=== PATIENT | female | born 1955 | race Caucasian/White ===

== ENCOUNTER → 2018-01-03 | Outpatient (CLI) | payer OTHER ==
[~2018-01-03] MED LIST: FENOFIBRATE PO; LOSA25TA21 PO; MULTIVITAMIN PO; SIMV10TA6 PO; SYNTHROID PO
== END | disposition home or self-care (01) ==
LOC: OIH 12:05
PROVIDERS: ATTEND Internal Medicine
DX: Z13.6 Encounter for screening for cardiovascular disorders (principal)
CPT/HCPCS: 75571

== ENCOUNTER → 2022-03-25 | Outpatient (CLI) | payer MEDICARE ==
[~2022-03-25] MED LIST changes: -LOSA25TA21 PO; +LOSA25TA41 PO; -SIMV10TA6 PO; +SIMV10TA97 PO
== END | disposition home or self-care (01) ==
LOC: RAH 11:22
PROVIDERS: ATTEND Physical Medicine & Rehabilitation
DX: M19.012 Primary osteoarthritis, left shoulder (principal); M25.512 Pain in left shoulder
CPT/HCPCS: 73030

== ENCOUNTER → 2022-05-01 | Outpatient (CLI) | payer MEDICARE | END | disposition home or self-care (01) | LOC: RAH 08:38 | PROVIDERS: ATTEND Physical Medicine & Rehabilitation | DX: M19.012 Primary osteoarthritis, left shoulder (principal); M75.102 Unspecified rotator cuff tear or rupture of left shoulder, not specified as traumatic; M25.512 Pain in left shoulder; M25.712 Osteophyte, left shoulder; Z88.6 Allergy status to analgesic agent; Z88.0 Allergy status to penicillin | CPT/HCPCS: 73221 ==

== ENCOUNTER → 2023-07-12 | Outpatient (CLI) | payer MEDICARE | END | disposition home or self-care (01) | LOC: RAH 10:04 | PROVIDERS: ATTEND Anesthesiology Pain Medicine | DX: M19.032 Primary osteoarthritis, left wrist (principal); M19.031 Primary osteoarthritis, right wrist; M19.042 Primary osteoarthritis, left hand; M19.041 Primary osteoarthritis, right hand | CPT/HCPCS: 73110 ==